=== PATIENT | female | born 1945 | race Caucasian/White ===

== ENCOUNTER 2017-04-19 13:47 | Observation (INO) | payer MEDICARE, SELFPAY ==
[2017-04-19 13:56] VITALS: PULSE 65; RESP 18; O2SAT 95
--- NOTE | 2017-04-19 14:46 | XR_ITS ---
XR chest 2V HISTORY: ITS.REASON: COUGH ORDERING PHYSICIAN: Cora Camara MD PATIENT AGE: 71 years COMPARISON: 09/24/2011 FINDINGS: The cardiomediastinal silhouette and pulmonary vascularity are within normal limits. The lungs are clear without infiltrates, suspicious nodules, or pleural effusions. Thoracic spondylosis with osteophytosis No acute bony abnormalities. IMPRESSION: No change with no acute finding
--- NOTE | 2017-04-19 15:25 | HMH.EDGENADL ---
ED Disposition Clinical Impression: Acute bronchitis, Hypokalemia, Claustrophobia Clinical Impression: (Ruled Out): Pneumonia Disposition: Still a Patient Condition on Discharge: Fair Additional Instructions: She continued and wheezing and she requested to be admitted because she lives by herself and her is admitted to [place]. Spoke Dr. Ching dedicated regional driver for Dr. Richards who accepted admission. Prescriptions: Albuterol Sulfate [Albuterol HFA Inhaler] 1 puff IH Q4HP PRN #1 inh PRN Reason: Shortness Of Breath Or Wheezing Benzonatate [Tessalon Perle 100mg Cap] 100 mg PO Q4HP PRN #30 cap PRN Reason: Cough cefUROXime axetil [Ceftin 250mg Tablet] 250 mg PO BID #20 tablet Referrals: Gaetano Ching MD [Staff Physician] - - Critical Care Critical Care Time: No Attestation: On 04/19/17, the high probability of a clinically significant, sudden or life threatening deterioration of the following system(s) required my full and direct attention, intervention and personal management. The time I documented below is in addition to time spent performing reported procedures but includes the following listed in this critical care notation. Medical Decision Making - Medical Records Medical records reviewed: Yes: I reviewed the patient's medical records. Vital Signs: 04/19/17 13:56 04/19/17 15:48 Temperature 98.4 F Temperature Source Temporal Artery Scan Temporal Artery Scan Pulse Rate [Right Brachial] 65 85 Respiratory Rate 18 18 02 Sat by Pulse Oximetry 95 Oxygen Delivery Method Room Air Nasal Cannula - Lab Data Lab Results 04/19/17 15:29: WBC 7.7, RBC 5.03, Hgb 14.2, Hct 43.1, MCV 85.7, MCH 28.2, MCHC 32.8, RDW 13.6, Plt Count 292, MPV 10.5 H, Neut % (Auto) 68.2, Lymph % (Auto) 22.9, [place] % (Auto) 7.9, Eos % (Auto) 0.7, Baso % (Auto) 0.3, Neut # (Auto) 5.2, Lymph # (Auto) 1.8, [place] # (Auto) 0.6, Eos # (Auto) 0.1, Baso # (Auto) 0.0 04/19/17 15:29: Sodium 139, Potassium 3.1 L, Chloride 100, Carbon Dioxide 29, Anion Gap 13.1, BUN 33 H, Creatinine 1.47 H, Estimated Creat Clear 43, Estimated GFR 35 L, Est GFR ( Amer) 42 L, Glucose 100, Calcium 9.0, Total Bilirubin 0.8, AST 19, ALT 23, Alkaline Phosphatase 86, Troponin I < 0.02, Total Protein 7.4, Albumin 3.9, Globulin 3.5 H, Albumin/Globulin Ratio 1.1 04/19/17 15:29: B-Natriuretic Peptide 23 Result diagrams: 04/19/17 15:29 04/19/17 15:29 Orders (Tests/Meds): ED MEDICATIONS Discontinued Medications Generic Name Dose Route Start Last Admin Trade Name Freq PRN Reason Stop Dose Admin Albuterol/Ipratropium 3 ml 04/19/17 17:17 Duoneb 3ml Neb IH 04/19/17 17:18 ONCE ONE Ceftriaxone Sodium 1 gm/ 50 mls @ 100 mls/hr 04/19/17 15:28 04/19/17 15:59 Sodium Chloride IV 04/19/17 15:57 100 mls/hr ONCE ONE Administration Methylprednisolone Sodium Succinate 125 mg 04/19/17 17:16 Solu-Medrol 125mg/2ml Vial IV 04/19/17 17:17 ONCE ONE Potassium Chloride 40 meq 04/19/17 17:18 Klor-Con 20meq Tablet PO 04/19/17 17:19 ONCE ONE ORDERS Category Date Time Status Upper Respiratory Panel, PCR Stat Lab 04/19/17 14:00 Received Blood Culture Stat Micro 04/19/17 15:29 Ordered Sputum Culture & Gram Stain Stat Micro 04/19/17 14:59 Ordered ABG [Arterial Blood Gas] Stat RT 04/19/17 14:57 Ordered ABG [Arterial Blood Gas] Stat RT 04/19/17 16:22 Ordered ECG Request by /Sophia Stat Y 04/19/17 14:57 Ordered - Radiology Data #2 Image(s): Chest Image Reviewed: Yes I reviewed the patient's radiology image The patient has chronic changes in her old chest x-ray I cannot exclude new left perihilar infiltrate. - ECG Data Tracing #1 EKG is normal sinus rhythm 61/min no acute findings - Mani Inquiry Pt receiving controlled substance: No Mani was queried for this patient: No Medical Decision Making Narrative: After lab works in the negative chest x-ray the patient con
--- NOTE | 2017-04-19 15:28 | ED_ITS ---
ED Disposition Clinical Impression: Acute bronchitis, Hypokalemia, Claustrophobia Clinical Impression: (Ruled Out): Pneumonia Disposition: Still a Patient Condition on Discharge: Fair Additional Instructions: She continued and wheezing and she requested to be admitted because she lives by herself and her is admitted to [place]. Spoke Dr. Ching extermination inspector for Dr. Richards who accepted admission. Prescriptions: Albuterol Sulfate [Albuterol HFA Inhaler] 1 puff IH Q4HP PRN #1 inh PRN Reason: Shortness Of Breath Or Wheezing Benzonatate [Tessalon Perle 100mg Cap] 100 mg PO Q4HP PRN #30 cap PRN Reason: Cough cefUROXime axetil [Ceftin 250mg Tablet] 250 mg PO BID #20 tablet Referrals: Gaetano Ching MD [Staff Physician] - - Critical Care Critical Care Time: No Attestation: On 04/19/17, the high probability of a clinically significant, sudden or life threatening deterioration of the following system(s) required my full and direct attention, intervention and personal management. The time I documented below is in addition to time spent performing reported procedures but includes the following listed in this critical care notation. Medical Decision Making - Medical Records Medical records reviewed: Yes: I reviewed the patient's medical records. Vital Signs: 04/19/17 13:56 04/19/17 15:48 Temperature 98.4 F Temperature Source Temporal Artery Scan Temporal Artery Scan Pulse Rate [Right Brachial] 65 85 Respiratory Rate 18 18 02 Sat by Pulse Oximetry 95 Oxygen Delivery Method Room Air Nasal Cannula - Lab Data Lab Results 04/19/17 15:29: WBC 7.7, RBC 5.03, Hgb 14.2, Hct 43.1, MCV 85.7, MCH 28.2, MCHC 32.8, RDW 13.6, Plt Count 292, MPV 10.5 H, Neut % (Auto) 68.2, Lymph % (Auto) 22.9, [place] % (Auto) 7.9, Eos % (Auto) 0.7, Baso % (Auto) 0.3, Neut # (Auto) 5.2 , Lymph # (Auto) 1.8, [place] # (Auto) 0.6, Eos # (Auto) 0.1, Baso # (Auto) 0.0 04/19/17 15:29: Sodium 139, Potassium 3.1 L, Chloride 100, Carbon Dioxide 29, Anion Gap 13.1, BUN 33 H, Creatinine 1.47 H, Estimated Creat Clear 43, Estimated GFR 35 L, Est GFR ( Amer) 42 L, Glucose 100, Calcium 9.0, Total Bilirubin 0.8, AST 19, ALT 23, Alkaline Phosphatase 86, Troponin I < 0.02 , Total Protein 7.4, Albumin 3.9, Globulin 3.5 H, Albumin/Globulin Ratio 1.1 04/19/17 15:29: B-Natriuretic Peptide 23 Result diagrams: 04/19/17 15:29 04/19/17 15:29 Orders (Tests/Meds): ED MEDICATIONS Discontinued Medications Generic Name Dose Route Start Last Admin Trade Name Freq PRN Reason Stop Dose Admin Albuterol/Ipratropium 3 ml 04/19/17 17:17 Duoneb 3ml Neb IH 04/19/17 17:18 ONCE ONE Ceftriaxone Sodium 1 gm/ 50 mls @ 100 mls/hr 04/19/17 15:28 04/19/17 15:59 Sodium Chloride IV 04/19/17 15:57 100 mls/hr ONCE ONE Administration Methylprednisolone Sodium Succinate 125 mg 04/19/17 17:16 Solu-Medrol 125mg/2ml Vial IV 04/19/17 17:17 ONCE ONE Potassium Chloride 40 meq 04/19/17 17:18 Klor-Con 20meq Tablet PO 04/19/17 17:19 ONCE ONE ORDERS Category Date Time Status Upper Respiratory Panel, PCR Stat Lab 04/19/17 14:00 Received Blood Culture Stat Micro 04/19/17 15:29 Ordered Sputum Culture & Gram Stain Stat Micro 04/19/17 14:59 Ordered ABG [Arterial Blood Gas] Stat RT 04/19/17 14:5
[2017-04-19 15:48] VITALS: PULSE 85; RESP 18; TEMP 36.9
[2017-04-19 16:02] LABS: Adenovirus,PCR Not Detected (NotDetected); Bordetella Pertussis Not Detected (NotDetected); Chlamydophila Pneumoniae, PCR Not Detected (NotDetected); Coronavirus 229E Not Detected (NotDetected); Coronavirus NL63 Not Detected (NotDetected); Coronavirus OC43 Not Detected (NotDetected); Coronovirus HKU1,PCR Not Detected (NotDetected); Human Metapneumovirus Not Detected (NotDetected); Influenza A, PCR Not Detected (NotDetected); Influenza AH1, 2009 Not Detected (NotDetected); Influenza AH1, PCR Not Detected (NotDetected); Influenza AH3,PCR Not Detected (NotDetected); Influenza B, PCR Not Detected (NotDetected); Mycoplasma Pneumoniae, PCR Not Detected (NotDected); Parainfluenza 1, PCR Not Detected (NotDetected); Parainfluenza 2, PCR Not Detected (NotDetected); Parainfluenza 3, PCR Not Detected (NotDetected); Parainfluenza 4, PCR Not Detected (NotDetected); Respiratory Syncytial Virus Not Detected (NotDetected); Rhinovirus/Enterovirus Not Detected (NotDetected)
[2017-04-19 16:30] LABS: Alanine Aminotransferase 23 U/L (12-78); Albumin Level 3.9 gm/dL (3.4-5.0); Albumin/Globulin Ratio 1.1 (1.1-1.8); Alkaline Phosphatase 86 U/L (46-116); Anion Gap 13.1 mEq/L (5-15); Aspartate Amino Transferase 19 U/L (15-37); Bilirubin,Total 0.8 mg/dL (0.2-1.0); Blood Urea Nitrogen 33 mg/dL (7-18); Carbon Dioxide 29 mmol/L (21.0-32.0); Chloride 100 mmol/L (98-107); Creatinine Clearance Estimated 43 mL/min (0-300); Creatinine,Serum 1.47 mg/dL (0.55-1.02); Estimated Glomerular Filt Rate 35 ml/min (>60); GFR (African American) 42 ML/MIN (>60); Globulin 3.5 gm/dl (1.3-3.2); Glucose 100 mg/dL (74-106); Potassium 3.1 mmoL/L (3.5-5.1); Sodium 139 mmol/L (136-145); Total Protein,Serum 7.4 gm/dL (6.4-8.2); Troponin I < 0.02 ng/ml (0.00-0.06)
[2017-04-19 17:09] LABS: Basophils % 0.3 % (0.1-2.0); Eosinophils # 0.1 K/mm3 (0.0-0.4); Eosinophils % 0.7 % (0.1-12.0); Hematocrit 43.1 % (37.0-47.0); Hemoglobin 14.2 g/dL (12.2-16.2); Lymphocytes # 1.8 K/mm3 (0.7-4.5); Lymphocytes % 22.9 K/mm3 (10-50); Mean Corpuscular HGB Conc 32.8 g/dL (31.8-35.4); Mean Corpuscular Hemoglobin 28.2 pg (27.0-31.2); Mean Corpuscular Volume 85.7 fl (81-99); Mean Platelet Volume 10.5 fl (7.4-10.4); Monocytes # 0.6 K/mm3 (0.1-1.0); Monocytes % 7.9 % (1.7-9.3); Neutrophils # 5.2 K/mm3 (1.8-7.8); Neutrophils % 68.2 % (37.0-80.0); Platelet Count 292 K/mm3 (142-424); Red Blood Count 5.03 M/mm3 (4.20-5.40); Red Cell Distribution Width 13.6 % (11.5-17.5); White Blood Count 7.7 K/mm3 (4.8-10.8)
[2017-04-19 17:10] VITALS: PULSE 80; O2SAT 98
[2017-04-19 17:15] LABS: ABG HCO3 23.4 mmhg (22.0-26.0); ABG Oxygen Saturation 98 % (90-100); ABG PCO2 23.7 mmhg (35.0-45.0); ABG PO2 86.3 mmhg (80-100); ABG TCO2 24.1 mmhg (23-27)
[2017-04-19 17:23] LABS: Allen's Test Non Applicable; Oxygen ROOM AIR %; Source Right Brachial
[2017-04-19 17:24] LABS: ABG PH 7.61 mmol/L (7.35-7.45)
[2017-04-19 17:39] VITALS: BMI 27.6
[2017-04-19 18:05] VITALS: BP 121/80; PULSE 65; RESP 16; TEMP 36.6; O2SAT 98
--- NOTE | 2017-04-19 18:07 | PC.NURSE ---
called report to adriel helms on . advised i needed someone to come get patient as we had no extra person to send up
[2017-04-19 19:28] VITALS: BP 121/80; PULSE 82; RESP 18; TEMP 37; O2SAT 98
[2017-04-19 20:00] VITALS: BP 153/56; PULSE 69; RESP 18; TEMP 36.6; O2SAT 99
[2017-04-20 00:12] LABS: Troponin I < 0.02 ng/ml (0.00-0.06)
[2017-04-20 04:00] VITALS: BP 127/52; PULSE 73; RESP 14; TEMP 36.6; O2SAT 99
--- NOTE | 2017-04-20 06:16 | PC.NURSE ---
PT HAS BEEN RESTLESS, HAS NOT SLEPT. PT WITH COUGH, REQUESTED COUGH MED. TESSALON PEARLE GIVEN. NO FURTHER COMPLAINTS OF COUGH AT THIS TIME. PT AMBULATING TO BATHROOM WITH STEADY GAIT.
[2017-04-20 07:29] LABS: Anion Gap 14.6 mEq/L (5-15); Blood Urea Nitrogen 29 mg/dL (7-18); Carbon Dioxide 27 mmol/L (21.0-32.0); Chloride 107 mmol/L (98-107); Creatinine Clearance Estimated 45 mL/min (0-300); Estimated Glomerular Filt Rate 40 ml/min (>60); GFR (African American) 49 ML/MIN (>60); Potassium 3.6 mmoL/L (3.5-5.1); Sodium 145 mmol/L (136-145); Troponin I < 0.02 ng/ml (0.00-0.06)
[2017-04-20 07:32] LABS: Basophils % 0.1 % (0.1-2.0); Eosinophils % 0.1 % (0.1-12.0); Hemoglobin 13.5 g/dL (12.2-16.2); Lymphocytes # 0.9 K/mm3 (0.7-4.5); Lymphocytes % 13.9 K/mm3 (10-50); Mean Corpuscular Hemoglobin 28.2 pg (27.0-31.2); Mean Corpuscular Volume 85.3 fl (81-99); Mean Platelet Volume 10.5 fl (7.4-10.4); Monocytes # 0.3 K/mm3 (0.1-1.0); Monocytes % 3.9 % (1.7-9.3); Neutrophils # 5.4 K/mm3 (1.8-7.8); Neutrophils % 82.1 % (37.0-80.0); Platelet Count 286 K/mm3 (142-424); Red Blood Count 4.81 M/mm3 (4.20-5.40); Red Cell Distribution Width 13.5 % (11.5-17.5); White Blood Count 6.6 K/mm3 (4.8-10.8)
[2017-04-20 07:36] LABS: Glucose 131 mg/dL (74-106)
--- NOTE | 2017-04-20 11:48 | P.CONPHA_ITS ---
[facility] Pharmacy VTE Monitoring - Patient Demographics Admission date: 04/20/17 Report Date: 04/20/17 Time: 11:48 Allergies/Adverse Reactions: Patient Allergies No Known Allergies Allergy (Verified 04/19/17 14:02) Height: 1.63 m Weight: 73.057 kg Patient Problems: Current Active Problems Acute bronchitis (Acute) Hypokalemia (Acute) Claustrophobia (Acute) - VTE Risk Labs: VTE Related Lab Results Hgb 13.5 g/dL (12.2-16.2) 04/20/17 06:25 Hct 41.0 % (37.0-47.0) 04/20/17 06:25 Plt Count 286 K/mm3 (142-424) 04/20/17 06:25 BUN 29 mg/dL (7-18) H 04/20/17 06:25 Creatinine 1.30 mg/dL (0.55-1.02) H 04/20/17 06:25 Estimated Creat Clear 45 mL/min (0-300) 04/20/17 06:25 Was VTE Risk Assessment Performed: No VTE Score: 2 VTE Risk Level: Very Low Risk - Prophylaxis Types of VTE Prophylaxis: TEDS Knee High Location of Applied Device: Right Leg, Left Leg - VTE Diagnosis Confirmed Comment: MIL
--- NOTE | 2017-04-20 12:05 | XR_ITS ---
XR chest 2V HISTORY: Cough and congestion ITS.REASON: r/o pneumonia ORDERING PHYSICIAN: Emerson Richards MD PATIENT AGE: 71 years COMPARISON: 04/19/2017 FINDINGS: The cardiomediastinal silhouette and pulmonary vascularity are within normal limits. Atelectatic changes are present in the left lung base and there is some increased density overlying the uterus back to the heart on the lateral view which could be due to an area of infiltrate in the lingula or right middle lobe. The remaining lungs are clear. IMPRESSION: Left basilar atelectasis with patchy infiltrate within either the lingula or right middle lobe
--- NOTE | 2017-04-20 12:06 | HMH.HP ---
*Admission Date: 04/19/17 *Chief complaint: cough and weakness *History of present illness: Ms. Aj is a 71-year-old white female with a history of hypertension, hyperlipidemia, carotid artery stenosis, and osteoarthritis who presented to the emergency room yesterday with a one-week history of generally not feeling well. She started with chest congestion and cough about a week ago. Cough is sometimes productive. She has had some generalized weakness past few days and appetite has been diminished. She had a fall 5 days ago and thinks that she actually passed out for about 20 minutes. No complaints of chest pain or palpitations. She was alone at home at the time. Her is currently in [facility] from a [id number] amputation. She was worked up in the emergency room. She was in mild respiratory distress. Chest x-ray showed acute bronchitis. Her potassium was low. Because she lives at home it was felt she should be admitted for further evaluation and treatment. At the time of my exam this morning, she still has a cough that is mostly nonproductive and she states she is weak and feels like she might pass out when she gets up to the . [facility] History I have reviewed the patient's past medical history: Yes Medical History: Reports:: Carotid Stenosis, Hyperlipidemia, Hypertension Denies:: Cancer, Diabetes Mellitus Type 1, Diabetes Mellitus Type 2, MRSA Other Medical History: Reports: Arthritis, Cataracts Laterality Cases: Left: Carotid Endarterectomy, Right: Cataract Other Surgeries: Yes: Tubal Ligation Amputation: No Fractures: No - *Social History Educational Level: Completed Grade School Smoking Status: Former smoker Tobacco Type: cigarettes Smoking End Date: 1979 Alcohol Intake: never Occupational Status: retired Housing: house Household Members: children - Psychiatric History Expresses thoughts of harming self/others: None Suicide Plan Description: No Plan *Family Hx:: Cancer (father - liver; siblings - brain), Stroke (mother) Review of Systems - Constitutional Reports fatigue, Reports malaise - Eyes Reports blurry vision - ENT Reports hearing loss, Reports nasal congestion, Denies sinus pain, Denies sore throat - *Cardiovascular Reports shortness of breath with activity, Denies chest pain, Denies generalized swelling, Denies irregular heart rhythm - *Respiratory Reports change in phlegm color, Reports chest congestion, Reports cough, Reports shortness of breath with activity, Denies coughing up blood, Denies pain with cough - *Gastrointestinal Denies abdominal pain, Denies change in stools, Denies incontinent of stools, Denies bright, red blood in stools - *Genitourinary Denies abnormal vaginal bleeding - *Musculoskeletal Reports joint pain - Integumentary/Breasts Denies itching, Denies rash Comments: abrasion of elbow - *Neurologic Reports unsteadiness, Reports dizziness, Denies memory loss Comments: syncopal episode - Psychiatric Reports depression, Denies confusion - Endocrine Denies cold intolerance, Denies heat intolerance - Allergic/Immunologic Denies itchy eyes Meds Home Medications Medication Instructions Recorded Confirmed Type Amlodipine Besylate [Amlodipine 10 mg PO DAILY 04/19/17 04/19/17 History 10mg Tab] Clopidogrel Bisulfate [Plavix 75mg 75 mg PO DAILY 04/19/17 04/19/17 History Tab] Furosemide [Furosemide 20mg Tab] 40 mg PO DAILY 04/19/17 04/19/17 History Metoprolol Tartrate [Lopressor 100 mg PO BID 04/19/17 04/19/17 History 25mg tablet] Pravastatin Sodium [Pravachol 20mg 40 mg PO DAILY 04/19/17 04/19/17 History Tablet] cloNIDine HCl [cloNIDine 0.1mg 1 tab PO DAILYP PRN 04/19/17 04/19/17 History Tablet] Valsartan [Valsartan] 160 mg PO BID 04/20/17 04/20/17 History Allergies Allergy/AdvReac Type Severity Reaction Status Date / Time No Known Allergies Allergy Verified 04/19/17 14:02 Exam Vital signs and Labs fo
[2017-04-20 15:37] VITALS: BP 143/75; PULSE 60; RESP 18; TEMP 37.1; O2SAT 98
[2017-04-20 16:00] VITALS: PULSE 62
--- NOTE | 2017-04-20 18:38 | PC.NURSE ---
PATIENT RESTING IN BED, NO CHANGES IN CONDITION TODAY.
[2017-04-20 20:00] VITALS: BP 138/70; PULSE 70; RESP 18; TEMP 36.8; O2SAT 99
[2017-04-21] VITALS (10 sets, daily range): BP systolic 126–153; BP diastolic 55–76; PULSE 57–80; RESP 18–20; TEMP 36.4–36.8; O2SAT 95–99
--- NOTE | 2017-04-21 05:12 | PC.NURSE ---
PT HAS BEEN AWAKE TONIGHT. REQUIRES STANDBY ASSIST OF 1 TO BATHROOM. NO COMPLAINTS OF COUGH THIS SHIFT. DID RECEIVE PO TYLENOL FOR HEADACHE. NSR ON TELEMTRY.
[2017-04-21 06:52] LABS: Basophils % 0.2 % (0.1-2.0); Eosinophils % 0.1 % (0.1-12.0); Hematocrit 38.8 % (37.0-47.0); Hemoglobin 12.6 g/dL (12.2-16.2); Lymphocytes # 1.1 K/mm3 (0.7-4.5); Lymphocytes % 9.4 K/mm3 (10-50); Mean Corpuscular HGB Conc 32.5 g/dL (31.8-35.4); Mean Corpuscular Hemoglobin 28.5 pg (27.0-31.2); Mean Corpuscular Volume 87.7 fl (81-99); Mean Platelet Volume 10.6 fl (7.4-10.4); Monocytes # 0.4 K/mm3 (0.1-1.0); Monocytes % 3.3 % (1.7-9.3); Platelet Count 269 K/mm3 (142-424); Red Blood Count 4.43 M/mm3 (4.20-5.40); Red Cell Distribution Width 13.8 % (11.5-17.5); White Blood Count 11.5 K/mm3 (4.8-10.8)
[2017-04-21 06:53] LABS: Anion Gap 13.5 mEq/L (5-15); Blood Urea Nitrogen 29 mg/dL (7-18); Carbon Dioxide 27 mmol/L (21.0-32.0); Chloride 106 mmol/L (98-107); Creatinine Clearance Estimated 46 mL/min (0-300); Creatinine,Serum 1.28 mg/dL (0.55-1.02); Estimated Glomerular Filt Rate 41 ml/min (>60); GFR (African American) 50 ML/MIN (>60); Glucose 180 mg/dL (74-106); Potassium 4.5 mmoL/L (3.5-5.1); Sodium 142 mmol/L (136-145)
--- NOTE | 2017-04-21 06:53 | CI_ITS ---
Cerebrovascular Exam Indications: 780.2 Syncope and collapse. 433.10 Occlusion/stenosis of carotid artery without cerebral infarction. IMPRESSIONS 1. The bilateral vertebral arteries are patent with normal antegrade flow. 2. Study suggests 50-69% stenosis involving the right internal carotid artery. 3. Study suggests less than 20% stenosis involving the left internal carotid artery. No change from the study of 13-Sep-2015. Labs, prior tests, procedures, and surgery: Left endarterectomy. Labs, prior tests, procedures, and surgery: Left endarterectomy. Carotid duplex study. Complete study and Doppler flow study including spectral analysis, color and romano scale imaging. Height: Height: 162.6cm. Height: 64in. Weight: Weight: 73kg. Weight: 160.7lb. Body mass index: BMI: 27.6kg/m^2. Body surface area: BSA: 1.83m^2. Location: Bedside. Patient status: Inpatient. Tables: Arterial flow: + +--------+--------+ Location V sys V ed + +--------+--------+ Right CCA - proximal 52.6cm/s 11.8cm/s + +--------+--------+ Right CCA - distal 51.9cm/s 18.9cm/s + +--------+--------+ Right ECA 110cm/s -------- + +--------+--------+ Right ICA - proximal 112cm/s 37.7cm/s + +--------+--------+ Right ICA - mid 118cm/s 27.5cm/s + +--------+--------+ Right ICA - distal 138cm/s 30.4cm/s + +--------+--------+ Right vertebral 56cm/s -------- + +--------+--------+ Left CCA - proximal 77.6cm/s 18.7cm/s + +--------+--------+ Left CCA - distal 92.3cm/s 26.5cm/s + +--------+--------+ Left ECA 167cm/s -------- + +--------+--------+ Left ICA - proximal 89.4cm/s 25.5cm/s + +--------+--------+ Left ICA - mid 89.4cm/s 22.6cm/s + +--------+--------+ Left ICA - distal 88.4cm/s 24.6cm/s + +--------+--------+ Left vertebral 50.1cm/s -------- + +--------+--------+ Velocity ratios: + + + + + + Right, V sys Right, V ed Left, V sys Left, V ed + + + + + + Max ICA/dist CCA 2.66 1.99 0.97 0.96 + + + + + + (Report amended ) Electronically signed by: Andrew Colón [id number]
[2017-04-21 06:55] LABS: MANUAL DIFFERENTIAL MANUAL DIFFERENTIAL (MANUAL DIFF)
[2017-04-21 07:50] LABS: Lymphocytes % 7 % (10-50); Neutrophils % 93 % (42-76); Platelet Estimate Normal; RBC Morphology Normal; Total Cells Counted 100
--- NOTE | 2017-04-21 09:45 | HMH.ACPN2 ---
<Caty Tipton - Last Filed: 04/21/17 13:48> Internal Medicine - PN: Subj *Date: 04/21/17 *Time: 13:48 Interval history: feels a little better this AM ; never sleeps at night; no appetite; some cough ; denies CP and SOB; has walked to the bathroom with help Exam Vital signs and Labs for Last 24 Hours: Temp Pulse Resp BP Pulse Ox 98.3 F 74 20 141/63 99 04/21/17 08:00 04/21/17 08:00 04/21/17 08:00 04/21/17 08:00 04/21/17 08:00 Laboratory Results - last 24 hr 04/21/17 06:12: WBC 11.5 H D, RBC 4.43, Hgb 12.6, Hct 38.8, MCV 87.7, MCH 28.5, MCHC 32.5, RDW 13.8, Plt Count 269, MPV 10.6 H, Neut % (Auto) 87.0 H, Lymph % (Auto) 9.4 L, [place] % (Auto) 3.3, Eos % (Auto) 0.1, Baso % (Auto) 0.2, Neut # (Auto) 10.0 H, Lymph # (Auto) 1.1, [place] # (Auto) 0.4, Eos # (Auto) 0.0, Baso # (Auto) 0.0, Total Counted 100, Neutrophils % (Manual) 93 H, Lymphocytes % (Manual) 7 L, Platelet Estimate Normal, RBC Morphology Normal 04/21/17 06:12: Sodium 142, Potassium 4.5 D, Chloride 106, Carbon Dioxide 27, Anion Gap 13.5, BUN 29 H, Creatinine 1.28 H, Estimated Creat Clear 46, Estimated GFR 41 L, Est GFR ( Amer) 50 L, Glucose 180 H D I & O for Last 24 hours: Intake & Output 04/18/17 04/19/17 04/20/17 04/21/17 11:59 11:59 11:59 11:59 Intake Total 764 / 764 3950 / 3950 Output Total 1200 / 1200 Balance 764 / 764 2750 / 2750 Weight 161 lb 1 oz Radiology Reports for the Last 24 Hours: 04/20/17 CXR IMPRESSION: Left basilar atelectasis with patchy infiltrate within either the lingula or right middle lobe - Constitutional no acute distress Comments: sitting on bedside bathing - *Routine Respiratory Exam Absent: accessory muscle use, respiratory distress Comments: bilateral basilar crackles - *Routine Cardiovascular Exam Present: RRR - *Routine Abdominal Exam Present: soft, normoactive bowel sounds. Absent: tenderness, distended - *Routine Extremities Exam Present: full ROM. Absent: edema, calf tenderness Comments: has MIL hose on - *Routine Neurological Exam Present: alert, oriented X3 Assessment and Plan (1) Acute bronchitis Current visit: Yes Status: Acute Category: Medical Code(s): J20.9 - Acute bronchitis, unspecified (2) Syncope and collapse Current visit: Yes Status: Acute Category: Medical Code(s): R55 - Syncope and collapse (3) HBP (high blood pressure) Current visit: Yes Status: Acute Category: Medical Code(s): I10 - Essential (primary) hypertension (4) Hyperlipidemia Current visit: Yes Status: Acute Category: Medical Code(s): E78.5 - Hyperlipidemia, unspecified (5) Generalized osteoarthritis Current visit: Yes Status: Acute Category: Medical Code(s): M15.9 - Polyosteoarthritis, unspecified (6) Carotid artery disease Current visit: Yes Status: Acute Category: Medical Code(s): I77.9 - Disorder of arteries and arterioles, unspecified (7) Hypokalemia Current visit: Yes Status: Acute Category: Medical Code(s): E87.6 - Hypokalemia (8) Chronic renal insufficiency, stage III (moderate) Current visit: Yes Status: Chronic Category: Medical Code(s): N18.3 - Chronic kidney disease, stage 3 (moderate) (9) Pneumonia Current visit: Yes Status: Acute Qualifiers: Laterality: right Category: Medical Code(s): J18.9 - Pneumonia, unspecified organism - Assessment and plan all Dx Assessment and Plan for all problems:: continue with Ceftin a d Zithromax and Duonebs <Emerson Richards - Last Filed: 04/21/17 18:07> Internal Medicine - PN: Subj *Date: 04/21/17 *Time: 18:04 Exam Vital signs and Labs for Last 24 Hours: Temp Pulse Resp BP Pulse Ox 98.3 F 70 20 127/55 97 04/21/17 15:18 04/21/17 15:18 04/21/17 15:18 04/21/17 15:18 04/21/17 15:18 Laboratory Results - last 24 hr 04/21/17 06:12: WBC 11.5 H D, RBC 4.43, Hgb 12.6, Hct 38.8, MCV 87.7, MCH 28.5, MCHC
--- NOTE | 2017-04-21 09:48 | P.PN_ITS ---
<Caty Tipton - Last Filed: 04/21/17 13:48> Internal Medicine - PN: Subj *Date: 04/21/17 *Time: 13:48 Interval history: feels a little better this AM ; never sleeps at night; no appetite; some cough ; denies CP and SOB; has walked to the bathroom with help Exam Vital signs and Labs for Last 24 Hours: Temp Pulse Resp BP Pulse Ox 98.3 F 74 20 141/63 99 04/21/17 08:00 04/21/17 08:00 04/21/17 08:00 04/21/17 08:00 04/21/17 08:00 Laboratory Results - last 24 hr 04/21/17 06:12: WBC 11.5 H D, RBC 4.43, Hgb 12.6, Hct 38.8, MCV 87.7, MCH 28.5, MCHC 32.5, RDW 13.8, Plt Count 269, MPV 10.6 H, Neut % (Auto) 87.0 H, Lymph % ( Auto) 9.4 L, [place] % (Auto) 3.3, Eos % (Auto) 0.1, Baso % (Auto) 0.2, Neut # ( Auto) 10.0 H, Lymph # (Auto) 1.1, [place] # (Auto) 0.4, Eos # (Auto) 0.0, Baso # ( Auto) 0.0, Total Counted 100, Neutrophils % (Manual) 93 H, Lymphocytes % (Manual ) 7 L, Platelet Estimate Normal, RBC Morphology Normal 04/21/17 06:12: Sodium 142, Potassium 4.5 D, Chloride 106, Carbon Dioxide 27, Anion Gap 13.5, BUN 29 H, Creatinine 1.28 H, Estimated Creat Clear 46, Estimated GFR 41 L, Est GFR ( Amer) 50 L, Glucose 180 H D I & O for Last 24 hours: Intake & Output 04/18/17 04/19/17 04/20/17 04/21/17 11:59 11:59 11:59 11:59 Intake Total 764 / 764 3950 / 3950 Output Total 1200 / 1200 Balance 764 / 764 2750 / 2750 Weight 161 lb 1 oz Radiology Reports for the Last 24 Hours: 04/20/17 CXR IMPRESSION: Left basilar atelectasis with patchy infiltrate within either the lingula or right middle lobe - Constitutional no acute distress Comments: sitting on bedside bathing - *Routine Respiratory Exam Absent: accessory muscle use, respiratory distress Comments: bilateral basilar crackles - *Routine Cardiovascular Exam Present: RRR - *Routine Abdominal Exam Present: soft, normoactive bowel sounds. Absent: tenderness, distended - *Routine Extremities Exam Present: full ROM. Absent: edema, calf tenderness Comments: has MIL hose on - *Routine Neurological Exam Present: alert, oriented X3 Assessment and Plan (1) Acute bronchitis Current visit: Yes Status: Acute Category: Medical Code(s): J20.9 - Acute bronchitis, unspecified (2) Syncope and collapse Current visit: Yes Status: Acute Category: Medical Code(s): R55 - Syncope and collapse (3) HBP (high blood pressure) Current visit: Yes Status: Acute Category: Medical Code(s): I10 - Essential (primary) hypertension (4) Hyperlipidemia Current visit: Yes Status: Acute Category: Medical Code(s): E78.5 - Hyperlipidemia, unspecified (5) Generalized osteoarthritis Current visit: Yes Status: Acute Category: Medical Code(s): M15.9 - Polyosteoarthritis, unspecified (6) Carotid artery disease Current visit: Yes Status: Acute Category: Medical Code(s): I77.9 - Disorder of arteries and arterioles, unspecified (7) Hypokalemia Current visit: Yes Status: Acute Category: Medical Code(s): E87.6 - Hypokalemia (8) Chronic renal insufficiency, stage III (moderate) Current visit: Yes Status: Chronic Category: Medical Code(s): N18.3 - Chronic kidney disease, stage 3 (moderate) (9) Pneumonia Current visit: Yes Status: Acute Qualifiers: Laterality: right Category: Medical Code(s): J18.9 - Pneumonia, unspecified organism
[2017-04-22] VITALS: BP 151/69; PULSE 55; RESP 18; TEMP 36.7; O2SAT 95
[2017-04-22 04:00] VITALS: BP 140/53; PULSE 50; PULSE 61; RESP 18; TEMP 36.5; O2SAT 98
--- NOTE | 2017-04-22 04:45 | PC.NURSE ---
PATE[place] LAYING IN BED RESTING AT THIS TIME. HAS SLEPT MOST OF NIGHT. DENIES ANY SOA OR PAIN. LUNGS ARE CLEAR, RESP EVEN AND NONLABORED. IV IS PATENT. HAS BEEN NSR ON TELE. DENIES ANY NEEDS AT THIS TIME. BED LOCKED IN LOW POSITION, SIDE RALES UP X 2. CALL LIGHT WITHIN REACH. WILLL CONTINUE TO MONITOR.
[2017-04-22 05:47] VITALS: PULSE 74; PULSE 78
[2017-04-22 08:00] VITALS: PULSE 70
--- NOTE | 2017-04-22 08:39 | HMH.DCSUM ---
General - General Admission date: 04/19/17 <Emerson Richards - 04/22/17 08:42> Discharge date: 04/22/17 <Laura Johnson - 04/22/17 14:18> HPI HPI: Ms. Aj is a 71-year-old white female with a history of hypertension, hyperlipidemia, carotid artery stenosis, and osteoarthritis who presented to the emergency room yesterday with a one-week history of generally not feeling well. She started with chest congestion and cough about a week ago. Cough is sometimes productive. She has had some generalized weakness past few days and appetite has been diminished. She had a fall 5 days ago and thinks that she actually passed out for about 20 minutes. No complaints of chest pain or palpitations. She was alone at home at the time. Her is currently in the senior care rehabbing from a [id number] amputation. She was worked up in the emergency room. She was in mild respiratory distress. Chest x-ray showed acute bronchitis. Her potassium was low. Because she lives at home it was felt she should be admitted for further evaluation and treatment. At the time of my exam this morning, she still has a cough that is mostly nonproductive and she states she is weak and feels like she might pass out when she gets up to the BR. <SusieEmerson leal - 04/22/17 08:42> Objective Vital signs: Temp Pulse Resp BP Pulse Ox 98.1 F 59 L 20 112/61 96 04/22/17 12:01 04/22/17 12:01 04/22/17 12:01 04/22/17 12:01 04/22/17 12:01 <Laura Johnson - 04/22/17 14:18> Temp Pulse Resp BP Pulse Ox 97.7 F 78 18 140/53 98 04/22/17 04:00 04/22/17 05:47 04/22/17 04:00 04/22/17 04:00 04/22/17 04:00 <Emerson Richards - 04/22/17 08:42> Narrative: - Constitutional no acute distress, cooperative Comments: dry cough - *Routine HEENT Exam Head: Present: normocephalic, atraumatic Eye: Present: PERRL. Absent: scleral injection ENT: Present: mucous membranes moist, oropharynx clear - *Routine Neck Exam Present: supple, carotid bruit. Absent: lymphadenopathy, thyromegaly - *Routine Respiratory Exam Comments: coarse BS with bilateral wheezes - *Routine Cardiovascular Exam Present: RRR - *Routine Abdominal Exam Present: soft, normoactive bowel sounds. Absent: tenderness, distended - *Routine Extremities Exam Absent: cyanosis, clubbing, edema <IzaiahLaura low - 04/22/17 14:18> Hospital Course Hospital Course: She was admitted for further evaluation and treatment. In terms of her bronchitis, she was given a dose of Rocephin and Zithromax in the ER and this was continued. She was also continued on IV steroids as well as DuoNeb aerosols. With her history of syncope and past history of carotid stenosis, a carotid artery duplex was ordered and she was placed on a solar sales representative. She did have some renal insufficiency which was likely chronic but may have had some degree of prerenal azotemia as well. She was started on IV fluids with potassium replacement. A repeat CXR after hydration showed a left basilar atelectasis with patchy infiltrate within either the lingula or the right middle lobe. She was continued on antibiotics, steroids and aerosols. Carotid duplex showed no critical stenoses. She improved and was stable to be discharged home on abx and nebs. She will f/u in the office of A. <Laura Johnson - 04/22/17 14:18> DS: Diagnosis - Discharge Diagnosis (1) Pneumonia Status: Acute (2) Syncope and collapse Status: Acute (3) HBP (high blood pressure) Status: Acute (4) Hyperlipidemia Status: Acute (5) Generalized osteoarthritis Status: Acute (6) Carotid artery disease Status: Acute (7) Hypokalemia Status: Acute (8) Chronic renal insufficiency, stage III (moderate) Status: Chronic <Emerson Richards - 04/22/17 08:39> Meds Home Medications Medication Instructions Recorded Confirmed Type Amlodipine Besylate [Amlodipine 10 mg PO D
--- NOTE | 2017-04-22 08:42 | P.DS_ITS ---
General - General Admission date: 04/19/17 <Emerson Richards - 04/22/17 08:42> Discharge date: 04/22/17 <Laura Johnson - 04/22/17 14:18> HPI HPI: Ms. Aj is a 71-year-old white female with a history of hypertension, hyperlipidemia, carotid artery stenosis, and osteoarthritis who presented to the emergency room yesterday with a one-week history of generally not feeling well. She started with chest congestion and cough about a week ago. Cough is sometimes productive. She has had some generalized weakness past few days and appetite has been diminished. She had a fall 5 days ago and thinks that she actually passed out for about 20 minutes. No complaints of chest pain or palpitations. She was alone at home at the time. Her is currently in the [facility] rehabbing from a [id number] amputation. She was worked up in the emergency room. She was in mild respiratory distress. Chest x-ray showed acute bronchitis. Her potassium was low. Because she lives at home it was felt she should be admitted for further evaluation and treatment. At the time of my exam this morning, she still has a cough that is mostly nonproductive and she states she is weak and feels like she might pass out when she gets up to the BR. <SusieEmerson leal - 04/22/17 08:42> Objective Vital signs: Temp Pulse Resp BP Pulse Ox 98.1 F 59 L 20 112/61 96 04/22/17 12:01 04/22/17 12:01 04/22/17 12:01 04/22/17 12:01 04/22/17 12:01 <Laura Johnson - 04/22/17 14:18> Temp Pulse Resp BP Pulse Ox 97.7 F 78 18 140/53 98 04/22/17 04:00 04/22/17 05:47 04/22/17 04:00 04/22/17 04:00 04/22/17 04:00 <Emerson Richards - 04/22/17 08:42> Narrative: - Constitutional no acute distress, cooperative Comments: dry cough - *Routine HEENT Exam Head: Present: normocephalic, atraumatic Eye: Present: PERRL. Absent: scleral injection ENT: Present: mucous membranes moist, oropharynx clear - *Routine Neck Exam Present: supple, carotid bruit. Absent: lymphadenopathy, thyromegaly - *Routine Respiratory Exam Comments: coarse BS with bilateral wheezes - *Routine Cardiovascular Exam Present: RRR - *Routine Abdominal Exam Present: soft, normoactive bowel sounds. Absent: tenderness, distended - *Routine Extremities Exam Absent: cyanosis, clubbing, edema <Laura Johnson - 04/22/17 14:18> Hospital Course Hospital Course: She was admitted for further evaluation and treatment. In terms of her bronchitis, she was given a dose of Rocephin and Zithromax in the ER and this was continued. She was also continued on IV steroids as well as DuoNeb aerosols. With her history of syncope and past history of carotid stenosis, a carotid artery duplex was ordered and she was placed on a raise miner. She did have some renal insufficiency which was likely chronic but may have had some degree of prerenal azotemia as well. She was started on IV fluids with potassium replacement. A repeat CXR after hydration showed a left basilar atelectasis with patchy infiltrate within either the lingula or the right middle lobe. She was continued on antibiotics, steroids and aerosols. Carotid duplex showed no critical stenoses. She improved and was stable to be discharged home on abx and nebs. She will f/u in the office of A. <Laura Johnson - 04/22/17 14:18> DS: Diagnosis - Discharge Diagnosis (1) Pneumonia Status: Acute (2) Syncope and collapse Status: Acute (3) HB
[2017-04-22 08:46] VITALS: BP 144/55; PULSE 77; RESP 18; TEMP 36.6; O2SAT 96
--- NOTE | 2017-04-22 09:44 | SW/DCPLANNER ---
Made rounds with Dr Richards he is going to discharge her to home today...She asked if I could assist her with making a call to her brother to come and get her! I did assist her and she will be leaving today after lunch...
[2017-04-22 12:01] VITALS: BP 112/61; PULSE 59; RESP 20; TEMP 36.7; O2SAT 96
== END 2017-04-22 13:15 | disposition home or self-care (01) ==
LOC: ER 17:24 → 2ND 20:12
PROVIDERS: Admitting Provider Family Medicine; Emergency Provider Emergency Medicine; Family Provider Family Medicine; Visit Provider Family Medicine
DX: J18.9 Pneumonia, unspecified organism (principal); J20.9 Acute bronchitis, unspecified; E87.6 Hypokalemia; F40.240 Claustrophobia; E78.5 Hyperlipidemia, unspecified; S50.311A Abrasion of right elbow, initial encounter; W19.XXXA Unspecified fall, initial encounter; Y93.9 Activity, unspecified; M15.9 Polyosteoarthritis, unspecified; R55 Syncope and collapse; I12.9 Hypertensive chronic kidney disease with stage 1 through stage 4 chronic kidney disease, or unspecified chronic kidney disease; N18.3 Chronic kidney disease, stage 3 (moderate); I77.9 Disorder of arteries and arterioles, unspecified; Z87.891 Personal history of nicotine dependence; Z80.0 Family history of malignant neoplasm of digestive organs; Z80.8 Family history of malignant neoplasm of other organs or systems; Z82.3 Family history of stroke; Z79.02 Long term (current) use of antithrombotics/antiplatelets; Z79.899 Other long term (current) drug therapy
CPT/HCPCS: 36415; 71046; 80048; 80053; 82803; 83880; 84484; 85007; 85025; 87040; 87070; 87205; 87486; 87581; 87633; 87798; 93005; 93041; 93880; 94640; 96365; 96376; 99284; G0378

== ENCOUNTER 2017-06-03 09:11 | Day surgery (SDC) | payer MEDICARE, SELFPAY ==
[2017-06-03] VITALS (8 sets, daily range): BP systolic 115–142; BP diastolic 54–83; PULSE 59–76; RESP 18; TEMP 36.5–36.6; O2SAT 95–98; BMI 28.3
== END 2017-06-03 11:19 | disposition home or self-care (01) ==
LOC: OR 09:13
PROVIDERS: Family Provider Family Medicine; PCP Family Medicine; Visit Provider Ophthalmology
DX: H26.9 Unspecified cataract (principal)
CPT/HCPCS: 66982; V2632

== ENCOUNTER → 2018-02-25 08:56 | Outpatient (CLI) | payer MEDICARE, SELFPAY ==
--- NOTE | 2018-02-25 08:59 | MM_ITS ---
MM Dig screening mamm BI w/CAD ORDERING PHYSICIAN : Emerson Richards MD PATIENT AGE: 72 years GENDER: Female COMPARISON: Apparently Baseline mammogram THERE are no prior films available.Staff double checked INDICATION: ITS.REASON: SCREENING . No hormones no new complaints. Family history. Maternal aunt with breast cancer age 60 TECHNIQUE: Standard CC and MLO images were obtained. R2 CAD reviewed. FINDINGS: Breast are of moderate density bilaterally y. RIGHT BREAST:Right breast. Follow-up in one year No areas of significant concern. Benign Secretory calcifications noted LEFT BREAST :12 mm discrete rounded ovoid density upper-outer quadrant left breast. Requires further evaluation with ultrasound. To further evaluate. CC and MLO views spot views, along with a full 90 degrees diagnostic views right breast mammogram views suggested when patient returns as well IMPRESSION: 1. Left breast: 12 mm will delineated ovoid density upper-outer quadrant left breast. Requires further evaluation with ultrasound and spot views 2. Right breast.: Unremarkable. Follow-up in one year BI-RADS Category: 0 Need Additional Imaging Evaluation RECOMMENDED FOLLOW-UP: IMM - IMMEDIATE FOLLOW-UP RECOMMENDED (A letter has been sent to the patient regarding results of the study.)
== END ==
PROVIDERS: PCP Family Medicine; Visit Provider Family Medicine
DX: Z12.31 Encounter for screening mammogram for malignant neoplasm of breast (principal)
CPT/HCPCS: 77067

== ENCOUNTER → 2018-03-27 08:59 | Outpatient (CLI) | payer MEDICARE, SELFPAY ==
--- NOTE | 2018-03-27 09:02 | US_ITS ---
MM Dig mamm DX unilat LT CAD, US breast LT complete INDICATION: Follow-up abnormal mammogram, left breast nodule ORDERING PHYSICIAN: Emerson Richards MD PATIENT AGE: 72 years COMPARISON: 02/25/2018 TECHNIQUE: Problem-solving views of the left breast along with left breast ultrasound FINDINGS: Spot compression views once again confirmed a well-circumscribed 13 x 12 mm nodule in the upper outer aspect of the left breast at the 1:00 region. Benign-appearing calcifications are noted on the left as well. Left breast ultrasound: There is a hypoechoic nodule at 1:00 have been a lobular appearance measuring 14 x 10 mm para lateral to the chest wall. The nodule is fairly well-circumscribed but does show decreased through transmission of sound. The nodule is barely superficial. Biopsy is recommended. This does not represent a simple cyst IMPRESSION: Solid nodule in the upper outer left breast as described above mildly suspicious. Biopsy recommended. Suggest ultrasound-guided core biopsy. BI-RADS Category: 4 Suspicious Abnormality-Biopsy Considered RECOMMENDED FOLLOW-UP: BIO - BIOPSY RECOMMENDED (A letter has been sent to the patient regarding results of the study.)
== END ==
PROVIDERS: PCP Family Medicine; Visit Provider Family Medicine
DX: R92.8 Other abnormal and inconclusive findings on diagnostic imaging of breast (principal)
CPT/HCPCS: 76641; 77065

== ENCOUNTER → 2018-04-17 09:12 | Outpatient (CLI) | payer MEDICARE, SELFPAY ==
--- NOTE | 2018-04-17 09:17 | US_ITS ---
US organ site (breast), US biopsy (core), US breast LT complete, FNA w guidance CLINICAL INDICATION: ITS.REASON: ABNORMAL MAMM ORDERING PHYSICIAN: Emerson Mayberry Prebiopsy ultrasound: Prebiopsy ultrasound performed for planning and once again demonstrates a well-circumscribed hypoechoic subcutaneous nodule near the nipple at 1:00. There was some increase echogenicity now noted on today's exam in the central aspect of this area possibly due to an intramammary lymph node. Appropriate site was marked on the patient for biopsy. TECHNIQUE: Following obtaining informed consent, timeout was performed. There are under aseptic conditions and local anesthesia with 1% buffered lidocaine fine-needle aspiration was performed with a 25-gauge needle. Following this, skin neck was performed and 16-gauge core biopsy performed x3 under sonographic guidance. The patient tolerated the procedure well without evidence of immediate complication. Cytology: Nondiagnostic specimen Pathology: Benign fibrous stroma with scant associated benign ducts and lobules IMPRESSION: Ultrasound guided biopsy of the left breast shows benign findings. Recommend 6 month mammographic and sonographic follow-up to confirm stability
== END ==
PROVIDERS: PCP Family Medicine; Visit Provider Family Medicine
DX: N63.20 Unspecified lump in the left breast, unspecified quadrant (principal); R92.8 Other abnormal and inconclusive findings on diagnostic imaging of breast
CPT/HCPCS: 10005; 76641; 76942; 88305

== ENCOUNTER 2021-04-06 08:54 | Inpatient (IN) | payer MEDICARE, SELFPAY ==
[2021-04-06] VITALS (10 sets, daily range): BP systolic 125–146; BP diastolic 44–101; PULSE 80–195; RESP 20–30; TEMP 36.7–37.1; O2SAT 92–100; BMI 28.3; BMI 29.7
--- NOTE | 2021-04-06 08:59 | XR_ITS ---
FINAL REPORT CLINICAL HISTORY: soa COMPARISON: April 20, 2017 FINDINGS: SINGLE VIEW CHEST. There is cardiomegaly. The mediastinum is unremarkable. There are new bibasilar pulmonary opacities which are worrisome for pneumonia. There is a small left pleural effusion. There is no pneumothorax. IMPRESSION: Bibasilar pulmonary opacities, worrisome for pneumonia. Reviewed, Interpreted and Dictated by Praveen Howell III, MD Transcribed by Quyen Feliz Authenticated by Praveen Howell III, MD on 04/06/2021 10:01:57 AM [facility]
--- NOTE | 2021-04-06 08:59 | HMH.EDGENADL ---
ED Disposition Clinical Impression: VIOLA (acute kidney injury), Atrial fibrillation with rapid ventricular response, New onset atrial fibrillation, Noncompliance with medication regimen Sepsis Qualifiers: Sepsis type: sepsis due to unspecified organism Sepsis acute organ dysfunction status: with acute organ dysfunction Severe sepsis acute organ dysfunction type: acute renal failure Acute renal failure type: unspecified Severe sepsis shock status: without septic shock Qualified Code(s): A41.9 - Sepsis, unspecified organism Pneumonia Qualifiers: Pneumonia type: due to unspecified organism Laterality: bilateral Lung location: lower lobe of lung Qualified Code(s): J18.9 - Pneumonia, unspecified organism CKD (chronic kidney disease) Qualifiers: Chronic kidney disease stage: unspecified stage Qualified Code(s): N18.9 - Chronic kidney disease, unspecified Disposition: Admitted As Inpatient Condition on Discharge: Serious Referrals: Emerson Richards MD [Primary Care Provider] - - Critical Care Critical Care Time: Yes Attestation: On , the high probability of a clinically significant, sudden or life threatening deterioration of the following system(s) required my full and direct attention, intervention and personal management. The time I documented below is in addition to time spent performing reported procedures but includes the following listed in this critical care notation. Total Critical Care Time: 30 Vital system(s) involved:: Circulatory Failure, Renal Failure My critical care processes included: Assessment & monitoring of V/S, Initial and Re-exams, Data Review/Interpretation, Coordinating Care, Medication Orders and management, Documentation Medical Decision Making - Mani Inquiry Pt receiving controlled substance: No Vital Signs: 04/06/21 08:54 04/06/21 09:30 04/06/21 09:48 Temperature 98.8 F Temperature Source Oral Pulse Rate 187 H 195 H Pulse Rate [Right] 188 H Respiratory Rate 20 Blood Pressure 142/101 H 140/44 L Blood Pressure [Right Arm] 127/98 H Blood Pressure Mean Blood Pressure Mean [Right Arm] 107 Blood Pressure Source Automatic Cuff Automatic Cuff Blood Pressure Source [Right Arm] Automatic Cuff Blood Pressure Position Sitting Sitting Blood Pressure Position [Right Arm] Sitting 02 Sat by Pulse Oximetry 98 100 Oxygen Delivery Method Room Air Nasal Cannula Oxygen Flow Rate (LPM) 2 04/06/21 09:50 04/06/21 10:11 04/06/21 10:30 Temperature Temperature Source Pulse Rate 118 H 99 H 144 H Pulse Rate [Right] Respiratory Rate 30 H 22 Blood Pressure 141/99 H 133/72 146/84 H Blood Pressure [Right Arm] Blood Pressure Mean Blood Pressure Mean [Right Arm] Blood Pressure Source Automatic Cuff Blood Pressure Source [Right Arm] Blood Pressure Position Sitting Blood Pressure Position [Right Arm] 02 Sat by Pulse Oximetry 99 92 L 99 Oxygen Delivery Method Nasal Cannula Nasal Cannula Nasal Cannula Oxygen Flow Rate (LPM) 2 2 2 04/06/21 11:01 Temperature Temperature Source Pulse Rate 129 H Pulse Rate [Right] Respiratory Rate 24 Blood Pressure 140/64 Blood Pressure [Right Arm] Blood Pressure Mean 89 Blood Pressure Mean [Right Arm] Blood Pressure Source Blood Pressure Source [Right Arm] Blood Pressure Position Blood Pressure Position [Right Arm] 02 Sat by Pulse Oximetry 100 Oxygen Delivery Method Nasal Cannula Oxygen Flow Rate (LPM) 2 - Lab Data Lab Results 04/06/21 09:03: SARS-CoV-2 (PCR) Not detected, Influenza A Untype (PCR) Not detected, Influenza Type B (PCR) Not detected 04/06/21 09:30: WBC 20.6 H*, RBC 5.14, Hgb 13.6, Hct 44.1, MCV 85.8, MCH 26.5 L, MCHC 30.9 L, RDW 16.9, Plt Count 488 H, MPV 9.3, Neut % (Auto) 87.8 H, Lymph % (Auto) 6.3 L, Rich % (Auto) 4.9, Eos % (Auto) 0.4, Baso % (Auto) 0.7, Neut # (Auto) 18.0 H, Lymph # (Auto) 1.3, Rich # (Auto) 1.0, Eos # (Auto) 0.1, Baso # (Auto) 0.1, Total Counted 100, Neutrophil
--- NOTE | 2021-04-06 09:00 | ECG_ITS ---
APPROVED REPORT Exam: Resting ECG HR:180 bpm ECG Measurements Heart Rate 180 AXES QRSd 82 QRS 38 QT 254 T 36 QTc 439 Conclusion Atrial fibrillation with rapid ventricular response Abnormal ECG Electronically signed by : Misael Feldman MD 04/06/2021 17:32:48
--- NOTE | 2021-04-06 09:09 | CA_ITS ---
APPROVED REPORT EXAM: Comprehensive 2D, Doppler, and color-flow Echocardiogram Procurement Consultant: Jocelyn Garcia CRT Ht: 5 ft 3 in Wt: 160lbs BSA: 1.76 BP: 129/69 mmHg Indications: Atrial Fibrillation, Hyperlipidemia, Hypertension/HDD, ex smoker 2D Dimensions LVOT 1.63 cm (M/F) 1.5-2.5 LA Volume 65.70 mL LA Volume Index 37.30 mL/m2 (M/F) 16-34 M-Mode Dimensions RVDd 2.51 cm (0.9-2.6) LA Diam 4.54 cm (1.9-4.0) LVDd 4.78 cm (3.5-5.7) Ao Diam 3.26 cm (2.0-3.7) LVDs 4.22 cm (3.5-5.7) IVSd 1.34 cm (0.6-1.1) PWd 0.69 cm (0.6-1.1) EF (Teich) 25.40% FS 11.70% EDV (Teich) 106.50 mL TAPSE 1.37 (<1.7) ESV (Teich) 79.50 mL Aortic Valve AO Peak GR. 8.60 mmHg Pulmonary Valve PV Peak Velocity 111.00 (50-150 cm/s) Tricuspid Valve TR P. Velocity 313.00 cm/s RAP Estimate 10.00 mmHg RVSP 49.20 mmHg Left Ventricle Left atrium is moderately enlarged, left ventricular is mildly dilated, severely reduced left ventricular systolic function, visually estimated ejection fraction 20 to 25% left ventricle is globally hypokinetic, there is abnormal septal motion. Diastolic parameters are inconclusive. Right Ventricle Right atrium and right ventricle are mildly dilated, contractility of the right ventricle is moderately reduced. Aortic Valve Aortic valve is minimally thickened and fibrosed, there is no aortic stenosis or aortic insufficiency. Mitral Valve Mitral valve leaflets are minimally thickened, there is no mitral stenosis, there is moderate mitral regurgitation. Tricuspid Valve Tricuspid valve is grossly normal, there is moderate tricuspid regurgitation, calculated right ventricular systolic pressure is 49 mmHg. Pulmonic Valve Pulmonic valve is poorly visualized. Great Vessels Aortic root is normal size. Inferior vena cava is mildly dilated without significant inspiratory collapse. Pericardium No significant pericardial effusion noted There is left-sided pleural effusion seen. Conclusion 1. Biatrial and biventricular enlargement, severely reduced left ventricular systolic function, visually estimated ejection fraction 20 to 25% left ventricle is globally hypokinetic. Diastolic parameters are inconclusive. 2. Enlarged right ventricle with moderately reduced contractility. 3. Moderate mitral and tricuspid regurgitation, calculated ventricular systolic pressure is 49 mmHg. 4. No significant pericardial effusion noted, there is a left-sided pleural effusion seen. 5. Inferior vena cava is mildly dilated without significant inspiratory collapse. Electronically signed by : Nikhil Powell MD 04/06/2021 15:32:43
[2021-04-06 09:29] LABS: Coronavirus 19, PCR Not Detected (NotDetected); Influenza A, PCR Not Detected (NotDetected); Influenza B, PCR Not Detected (NotDetected)
[2021-04-06 09:52] LABS: Basophils # 0.1 K/mm3 (0-0.2); Basophils % 0.7 % (0.1-2.0); Eosinophils # 0.1 K/mm3 (0.0-0.4); Eosinophils % 0.4 % (0.1-12.0); Hematocrit 44.1 % (37.0-47.0); Hemoglobin 13.6 g/dL (12.2-16.2); Lymphocytes # 1.3 K/mm3 (0.7-4.5); Lymphocytes % 6.3 % (10-50); Mean Corpuscular HGB Conc 30.9 g/dL (31.8-35.4); Mean Corpuscular Hemoglobin 26.5 pg (27.0-31.2); Mean Corpuscular Volume 85.8 fl (81-99); Mean Platelet Volume 9.3 fl (7.4-10.4); Monocytes % 4.9 % (1.7-9.3); Neutrophils % 87.8 % (37.0-80.0); Platelet Count 488 K/mm3 (142-424); Red Blood Count 5.14 M/mm3 (4.20-5.40); Red Cell Distribution Width 16.9 % (11.5-17.5); White Blood Count 20.6 K/mm3 (4.8-10.8)
[2021-04-06 09:55] LABS: MANUAL DIFFERENTIAL MANUAL DIFFERENTIAL (MANUAL DIFF)
[2021-04-06 10:00] LABS: Alanine Aminotransferase 94 U/L (12-78); Albumin Level 3.8 g/dl (3.5-5.0); Albumin/Globulin Ratio 1.2 (1.1-1.8); Alkaline Phosphatase 131 U/L (38-126); Anion Gap 21.3 mEq/L (5-15); Aspartate Amino Transferase 107 U/L (14-36); Bilirubin,Total 1.6 mg/dl (0.2-1.3); Blood Urea Nitrogen 70 mg/dl (7-17); Calcium 9.1 mg/dl (8.4-10.2); Carbon Dioxide 19 mmol/L (22.0-30.0); Chloride 98 mmol/L (98-107); Creatinine Clearance Estimated 18 mL/min (50-200); Estimated Glomerular Filt Rate 15 ml/min (>60); GFR (African American) 18 ML/MIN (>60); Globulin 3.2 g/dL (1.3-3.2); Glucose 118 mg/dl (74-100); Potassium 5.3 mmoL/L (3.5-5.1); Sodium 133 mmol/L (136-145)
[2021-04-06 10:01] LABS: Magnesium 2.5 mg/dl (1.6-2.3)
--- NOTE | 2021-04-06 10:07 | PC.NURSE ---
Called lab and asked them to come and collect BC and lactic acid.
[2021-04-06 10:11] LABS: Anisocytosis 1+; Hypochromasia 2+; Lymphocytes % 7 % (10-50); Monocytes % 5 % (2-9); Neutrophils % 87 % (42-76); Nucleated Red Blood Cells 2; Platelet Estimate Slight Increase; Total Cells Counted 100
[2021-04-06 10:13] LABS: Troponin I 0.06 ng/ml (0.00-0.034)
--- NOTE | 2021-04-06 10:21 | PC.NURSE ---
Drip increased to 15mg. Notified
[2021-04-06 10:23] LABS: Free Thyroxine Index 3.2 ug/dL (5.93-13.13); T4 (Thyroxine) 7.8 ug/dl (5.53-11.0); Triiodothryronine (T3) Uptake 41 % (23.5-40.5)
--- NOTE | 2021-04-06 10:29 | PC.NURSE ---
lab at bedside for cultures and lactic
--- NOTE | 2021-04-06 10:30 | PC.NURSE ---
calling dr miller at this time.
[2021-04-06 10:37] LABS: Thyroid Stimulating Hormone 3.72 uIU/mL (0.465-4.68)
--- NOTE | 2021-04-06 10:44 | PC.NURSE ---
1037 bed assignment requested, room [id number]. waiting for room to be cleaned. all staff notified
--- NOTE | 2021-04-06 10:45 | PC.NURSE ---
meat supervisor called. Patient is going to go [facility] room 217.
--- NOTE | 2021-04-06 10:53 | PC.NURSE ---
lab at attempting to obtain blood cultures and lactic acid, pt is a difficult stick ER is aware
--- NOTE | 2021-04-06 10:55 | PC.NURSE ---
Call Lay and asked for her to come down and place another IV so we could obtain BC/lactic and start fluids.
[2021-04-06 10:59] LABS: NT Pro Brain Natriuretic Pep. 24100 pg/mL (0-450)
--- NOTE | 2021-04-06 11:06 | PC.NURSE ---
Lay at bedside
[2021-04-06 11:22] LABS: Lactic Acid 2.8 mmol/L (0.7-2.1)
--- NOTE | 2021-04-06 11:37 | PC.NURSE ---
Called report to Kalyani on the floor.
--- NOTE | 2021-04-06 11:39 | PC.NURSE ---
v/s delayed due to attempting IV access
--- NOTE | 2021-04-06 12:03 | PC.NURSE ---
Lay able to place a 18g in the right upper arm.
--- NOTE | 2021-04-06 12:43 | PC.NURSE ---
HR maintaining 135-147. Cardizem gtt increased to 20mL/hr @ this time
--- NOTE | 2021-04-06 12:46 | P.HP_ITS ---
*Admission Date: 04/06/21 <Laura Johnson 04/06/21 12:55> *History of present illness: Brought in by ambulance. History obtained from patient and son. Patient says she has not felt well for 4 days. Complains of no appetite for food, but has been able to drink liquids and states she has been drinking a lot of fluid. Complains of general weakness. Son says she is not able to get up on her own and walk. Shortness of breath. Productive cough. No known fever. Denies vomiting or diarrhea. Denies urinary symptoms. Denies chest pain or palpitations or tachycardia. She admits that she has not been taking her medications for several months. She gets medications via mail prescribed 3 months at a time by Dr. Richards. She has never been a smoker. Nondrinker. No known exposure to COVID-19. States no family members have COVID-19. She is not vaccinated against COVID-19. (above as per ER physician) She was evaluated in the ER and found to have bilateral pneumonia and atrial fibrillation with rapid ventricular response and a rate of 180. She was started on IV antibiotics and a Cardizem drip as well as IV fluids. She was admitted and cardiology was consulted. <Laura Johnson 04/06/21 17:10> [facility] History I have reviewed the patient's past medical history: Yes <Laura Johnson 04/06/21 17:10> Medical History: Reports:: Carotid Stenosis, Deep Vein Thrombosis, Hyperlipidemia, Hypertension Denies:: Cancer, Diabetes Mellitus Type 1, Diabetes Mellitus Type 2, Lung Disease, MRSA, Seizures <Laura Johnson 04/06/21 12:55> *Have you ever received a pneumonia vaccine?: No <Laura Johnson 04/06/21 12:55> *Have you received a flu vaccine this season?: No <Laura Johnson 04/06/21 12:55> Other Medical History: Reports: Arthritis, Cataracts <Laura Johnson 04/06/21 12:55> Laterality Cases: Left: Carotid Endarterectomy <Laura Johnson 04/06/21 12:55> Other Surgeries: Yes: Tubal Ligation, Other (left CEA) <Laura Johnson 04/06/21 12:55> Amputation: No <IzaiahmarandaLaura 04/06/21 12:55> Fractures: No <IzaiahmarandaLaura - 04/06/21 12:55> - *Social History Smoking Status: Former smoker <IzaiahMario lowa 04/06/21 12:55> Tobacco Type: cigarettes <IzaiahmarandaLaura 04/06/21 12:55> Alcohol Intake: never <ElizabethLaura 04/06/21 12:55> *Occupational Status:: retired <IzaiahMario lowa 04/06/21 12:55> Housing: house <IzaiahmarandaLaura 04/06/21 12:55> Household Members: children <IzaiahMario lowa 04/06/21 12:55> *Travel in the last 8 weeks: None <ElizabethLaura - 04/06/21 17:10> Family Hx:: Cancer (father - liver; siblings - brain), Stroke (mother) <ElizabethLaura 04/06/21 12:55> Review of Systems - Constitutional Reports fatigue, Reports lack of energy, Reports malaise, Reports weakness, D enies chills, Denies fever(s) <ElizabethLaura 04/06/21 17:10> - Eyes Denies blurry vision, Denies double vision <ElizabethLaura - 04/06/21 17:10> - ENT Reports nasal congestion, Reports sore throat <ElizabethLaura - 04/06/21 17:10> - *Cardiovascular Reports shortness of breath, Denies chest pain <ElizabethLaura - 04/06/21 17:10> - *Respiratory Reports chest congestion, Reports cough, Reports shortness of breath <ElizabethLaura 04/06/21 17:10> - *Gastrointestinal Denies abdominal pain, Denies loose stools, Denies nausea, Denies vomiting <ElizabethLaura 04/06/21 17:10> - *Genitourinary Denies difficulty urinating, Denies painful urination <ElizabethLaura 04/06 17:10> - *Musculoskeletal Denies joint pain <ElizabethLaura 04/06/21 17:10> - *Neurologic Reports headache(s), Reports dizziness, Reports weakne
--- NOTE | 2021-04-06 12:46 | HMH.HP ---
*Admission Date: 04/06/21 <Laura Johnson 04/06/21 12:55> *History of present illness: Brought in by ambulance. History obtained from patient and son. Patient says she has not felt well for 4 days. Complains of no appetite for food, but has been able to drink liquids and states she has been drinking a lot of fluid. Complains of general weakness. Son says she is not able to get up on her own and walk. Shortness of breath. Productive cough. No known fever. Denies vomiting or diarrhea. Denies urinary symptoms. Denies chest pain or palpitations or tachycardia. She admits that she has not been taking her medications for several months. She gets medications via mail prescribed 3 months at a time by Dr. Richards. She has never been a smoker. Nondrinker. No known exposure to COVID-19. States no family members have COVID-19. She is not vaccinated against COVID-19. (above as per ER physician) She was evaluated in the ER and found to have bilateral pneumonia and atrial fibrillation with rapid ventricular response and a rate of 180. She was started on IV antibiotics and a Cardizem drip as well as IV fluids. She was admitted and cardiology was consulted. <Laura Johnson 04/06/21 17:10> [facility] History I have reviewed the patient's past medical history: Yes <Laura Johnson 04/06/21 17:10> Medical History: Reports:: Carotid Stenosis, Deep Vein Thrombosis, Hyperlipidemia, Hypertension Denies:: Cancer, Diabetes Mellitus Type 1, Diabetes Mellitus Type 2, Lung Disease, MRSA, Seizures <Laura Johnson 04/06/21 12:55> *Have you ever received a pneumonia vaccine?: No <Laura Johnson 04/06/21 12:55> *Have you received a flu vaccine this season?: No <Laura Johnson 04/06/21 12:55> Other Medical History: Reports: Arthritis, Cataracts <Laura Johnson 04/06/21 12:55> Laterality Cases: Left: Carotid Endarterectomy <Laura Johnson 04/06/21 12:55> Other Surgeries: Yes: Tubal Ligation, Other (left CEA) <Larua Johnson 04/06/21 12:55> Amputation: No <Laura Johnson 04/06/21 12:55> Fractures: No <Mario Johnson04/06/21 12:55> - *Social History Smoking Status: Former smoker <Laura Johnson 04/06/21 12:55> Tobacco Type: cigarettes <Laura Johnson 04/06/21 12:55> Alcohol Intake: never <Laura Johnson 04/06/21 12:55> *Occupational Status:: retired <Laura Johnson 04/06/21 12:55> Housing: house <Laura Johnson 04/06/21 12:55> Household Members: children <Laura Johnson 04/06/21 12:55> *Travel in the last 8 weeks: None <Mario Johnson04/06/21 17:10> Family Hx:: Cancer (father - liver; siblings - brain), Stroke (mother) <Laura Johnson 04/06/21 12:55> Review of Systems - Constitutional Reports fatigue, Reports lack of energy, Reports malaise, Reports weakness, Denies chills, Denies fever(s) <Mario Johnson04/06/21 17:10> - Eyes Denies blurry vision, Denies double vision <ElizabethLaura - 04/06/21 17:10> - ENT Reports nasal congestion, Reports sore throat <Mario Johnson04/06/21 17:10> - *Cardiovascular Reports shortness of breath, Denies chest pain <Mario Johnson04/06/21 17:10> - *Respiratory Reports chest congestion, Reports cough, Reports shortness of breath <Mario Johnson04/06/21 17:10> - *Gastrointestinal Denies abdominal pain, Denies loose stools, Denies nausea, Denies vomiting <Mario Johnson04/06/21 17:10> - *Genitourinary Denies difficulty urinating, Denies painful urination <Laura Johnson 04/06/21 17:10> - *Musculoskeletal Denies joint pain <Laura Johnson 04/06/21 17:10> - *Neurologic Reports headache(s), Reports dizziness, Reports weakness <Laura Johnson - 04/06/21 17:10> Meds Home Medications Medication Instructions Recorded Confirmed Type Amlodipine Besylate [Amlodipine 10 mg PO DAILY 04/19/17 04/06/21 History 10mg Tab] Clopidogrel Bisulfate [Plavix 75mg 75 mg PO DAILY 04/19/17 04/06/21 History Tab] Furosemide [Furosemide 20mg Tab*] 4
--- NOTE | 2021-04-06 13:17 | P.CONPHA_ITS ---
[facility] Pharmacy VTE Monitoring - Patient Demographics Admission date: 04/06/21 Report Date: 04/06/21 Time: 13:18 Allergies/Adverse Reactions: Patient Allergies No Known Allergies Allergy (Verified 04/19/17 14:02) Height: 1.6 m Weight: 72.575 kg Patient Problems: Current Active Problems HBP (high blood pressure) (Chronic) Hyperlipidemia (Chronic) Generalized osteoarthritis (Chronic) Carotid artery disease (Chronic) Chronic renal insufficiency, stage III (moderate) (Chronic) Pneumonia (Acute) Sepsis (Acute) VIOLA (acute kidney injury) (Acute) CKD (chronic kidney disease) (Chronic) Atrial fibrillation with rapid ventricular response (Acute) New onset atrial fibrillation (Acute) Noncompliance with medication regimen (Chronic) Elevated troponin (Acute) Elevated brain natriuretic peptide (BNP) level (Acute) - VTE Risk Labs: VTE Related Lab Results Hgb 13.6 g/dL (12.2-16.2) 04/06/21 09:30 Hct 44.1 % (37.0-47.0) 04/06/21 09:30 Plt Count 488 K/mm3 (142-424) H 04/06/21 09:30 BUN 70 mg/dl (7-17) H 04/06/21 09:30 Creatinine 3.10 mg/dl (0.52-1.04) H 04/06/21 09:30 Estimated Creat Clear 18 mL/min (50-200) 04/06/21 09:30 Was VTE Risk Assessment Performed: Yes VTE Risk Level: Moderate Risk Clinical Trial Participant: No - Prophylaxis VTE Prophylaxis Ordered?: Yes Types of VTE Prophylaxis: TEDS Knee High
--- NOTE | 2021-04-06 13:39 | HMH.CNCARD ---
History of Present Illness Consult date: 04/06/21 Requesting physician: Emerson Richards Consult reason: shortness of breath Chief complaint: A. fib with RVR, bilateral pneumonia Additional Medical History:: 1. HTN, treated for many years but stopped meds in early 2020 2. Acute renal insufficiency, 03/2021 3. Hyperlipidemia 4. History of DVT 5. History of carotid artery stenosis History of present illness: Brought in by ambulance. History obtained from patient and son. Patient says she has not felt well for 4 days. Complains of no appetite for food, but has been able to drink liquids and states she has been drinking a lot of fluid. Complains of general weakness. Son says she is not able to get up on her own and walk. Shortness of breath. Productive cough. No known fever. Denies vomiting or diarrhea. Denies urinary symptoms. Denies chest pain or palpitations or tachycardia. She admits that she has not been taking her medications for several months. She gets medications via mail prescribed 3 months at a time by Dr. Richards. She has never been a smoker. Nondrinker. No known exposure to COVID-19. States no family members have COVID-19. She is not vaccinated against COVID-19. She was evaluated in the ER and found to have bilateral pneumonia and atrial fibrillation with rapid ventricular response and a rate of 180. She was started on IV antibiotics and a Cardizem drip as well as IV fluids. She was admitted and cardiology was consulted. The above per DR. Goss and Laura Johnsno PA-C for Dr. Richards. Patient confirms events as noted above. Stopped taking medications at least 6 months ago and states that since her 3 years ago she has given up on taking care of herself. Patient in bed with supplemental oxygen by nasal cannula with telemetry showing atrial fibrillation with variable rate between 120 and 140 bpm. She is on diltiazem IV 20 mg/h at this time. She denies any prior cardiac history or history of congestive heart failure. She denies diabetes or tobacco use. Chest x-ray shows bilateral pneumonia BNP elevated at over 24,000 Echocardiogram has been ordered but is pending at this time. [facility] History Medical History: Reports:: Carotid Stenosis, Deep Vein Thrombosis, Hyperlipidemia, Hypertension Denies:: Cancer, Diabetes Mellitus Type 1, Diabetes Mellitus Type 2, Lung Disease, MRSA, Seizures *Have you ever received a pneumonia vaccine?: No *Have you received a flu vaccine this season?: No Other Medical History: Reports: Arthritis, Cataracts Laterality Cases: Left: Carotid Endarterectomy Other Surgeries: Yes: Tubal Ligation, Other (left CEA) Amputation: No Fractures: No - *Social History Smoking Status: Former smoker Tobacco Type: cigarettes Alcohol Intake: never *Occupational Status:: retired Housing: house Household Members: children *Travel in the last 8 weeks: None Family Hx:: Cancer (father - liver; siblings - brain), Stroke (mother) Meds Home Medications Medication Instructions Recorded Confirmed Type Amlodipine Besylate [Amlodipine 10 mg PO DAILY 04/19/17 04/06/21 History 10mg Tab] Clopidogrel Bisulfate [Plavix 75mg 75 mg PO DAILY 04/19/17 04/06/21 History Tab] Furosemide [Furosemide 20mg Tab*] 40 mg PO DAILY 04/19/17 04/06/21 History Pravastatin Sodium [Pravachol 20mg 40 mg PO HS 04/19/17 04/06/21 History Tablet] cloNIDine HCL [cloNIDine 0.1mg 1 tab PO HS 04/19/17 04/06/21 History Tablet] Doxepin HCl [Sinequan 25mg capsule] 25 mg PO HS 04/06/21 04/06/21 History Losartan Potassium [Cozaar 100mg 100 mg PO DAILY 04/06/21 04/06/21 History Tablets] Metoprolol Tartrate [Lopressor 100 100 mg PO BID 04/06/21 04/06/21 History mg Tablets] Multivitamin 1 tab PO DAILY 04/06/21 04/06/21 History Sertraline HCl [Zoloft 50mg tablet] 50 mg PO DAILY 04/06/21 04/06/21 History Allergies Allergy/AdvReac Type Severity Reaction Status Date / Time No Known All
--- NOTE | 2021-04-06 13:41 | HMH.PHAINT ---
home medication list verified using list from A office
[2021-04-06 15:12] LABS: Reflex Lactic Add Lactic Reflex
--- NOTE | 2021-04-06 16:46 | PC.NURSE ---
Cardizem gtt turned off at this time, HR between 95-110.
[2021-04-06 17:01] LABS: Lactic Acid Follow Up (RFLX 1) 1.2 mmol/L (0.7-2.1)
[2021-04-06 17:13] LABS: Troponin I 0.06 ng/ml (0.00-0.034)
[2021-04-06 17:28] LABS: Activated Partial Thrombo Time 26.1 seconds (22.8-30.6); INR 1.43 (0.9-1.1); Prothrombin Time 15.7 seconds (10.1-12.5)
--- NOTE | 2021-04-06 19:59 | PC.NURSE ---
Spoke to costumer Socrates Cheek- he will be up to assess patient shortly.
--- NOTE | 2021-04-06 20:11 | PC.NURSE ---
MD Ching notified of pt's expiration
--- NOTE | 2021-04-06 20:12 | P.PN_ITS ---
Critical Care Event Note Code activated: Yes Narrative: This case had a high probability of a clinically significant, sudden, or life threatening deterioration of this patient's condition which required my full and direct attention, intervention and personal management. GERMÁN SOLITARIO called on the patient. Nursing staff reports that patient had been taken off of Cardizem drip about 4:30 PM due to severe cardiomyopathy found on echocardiogram. She was started on metoprolol. They report heart rate was controlled and blood pressure was good but then she suddenly became bradycardic and pulseless. Nurses report that CPR was started and 2 doses of epinephrine have been given prior to my arrival. She is being ventilated with bag mask ventilations. Inspection of her airway shows that her oropharynx is completely full of blood. Pharynx was suctioned out. Unable to use glide scope because of massive amount of hemoptysis. The patient was intubated using a straight blade with a 7.5 endotracheal tube. Tube immediately filled with blood once in the trachea. This was suction as well. She continued to have large amounts of blood filling her endotracheal tube and required repeated suctioning. 250 cc of blood was suctioned out of the endotracheal tube and out of the oropharynx. She initially was in pulseless electrical activity upon my arrival, CPR and continued doses of epinephrine were administered. IV fluids were administered and universal donor blood was ordered. Intraosseous access was obtained by staff in the right tibia. The patient briefly regained spontaneous circulation with pulses, but blood pressure of 40. She only maintained spontaneous circulation for few minutes and then again it deteriorated to pulseless electrical activity. CPR resumed and further doses of epinephrine administered. Despite all of these measures after 30 minutes she remained in PEA and unresponsive to resuscitative measures. I spoke with the patient's 2 sons. I advised him that further tests stated efforts were not likely to be beneficial and I recommended withdrawing care at this time. They are both in agreement. They state that the patient had basically given up for years ago when her and stopped taking all of her medications months ago because she had given up. She was pronounced at 9:30 PM. Pupils were fixed and dilated. She was apneic. She was pulseless. No heart tones. Endotracheal Intubation Performed by: ALY ADLER Authorized by: ALY ADLER Consent: The procedure was performed in an emergent situation. Patient identity confirmed: arm band Indications: cardiac arrest Intubation method: direct Laryngoscope size: Roman 4 blade Tube size: 7.5 mm Tube type: cuffed Number of attempts: 1 Cords visualized: yes Post-procedure assessment: chest rise and CO2 detector Breath sounds: equal and absent over the epigastrium Cuff inflated: yes ETT to teeth: 20 cm Tube secured with: ETT haider Critical care time: 30 - 74 mins [facility] Critical Care Exam Vital signs: Temp Pulse Resp BP Pulse Ox 98.1 F 80 21 125/56 L 100 04/06/21 12:23 04/06/21 16:00 04/06/21 16:00 04/06/21 16:00 04/06/21 16:00
--- NOTE | 2021-04-06 20:17 | HMH.DEATH ---
Pronouncement Note - Date and Time of Date of : 04/06/21 Time of : 19:30 - Additional Data Attending physician: Emerson Richards MD
--- NOTE | 2021-04-06 20:22 | PC.NURSE ---
SHELLY notified at 04/06/21 @ 2011 [employer]: Catherine Sellers Ruled out for donation. Case # [id number]
--- NOTE | 2021-04-06 20:29 | PC.NURSE ---
Socrates Cheek speaking to son @ this time
--- NOTE | 2021-04-06 20:50 | PC.NURSE ---
During report, pt became bradycardic in the s. This RN went into room, pt had no pulse and was cyanotic. 1899- code blue called, CPR initiated 1900- pulse check PEA on monitor, compressions continued 1902- epi in 1903- rhythm check, asystole on monitor 1905- epi in 1906- rhythm check, no pulse, asystole 1908- epi in 1909- rhythm check, PEA 1910- BiCarb in, calcium chloride in 1911- epi in 1911- pulse check, pulse detected 1912- MD Goss ordered EKG, ABG, CBC 1913- BP 44/12 1914- CPR restarted 1915- epi in. ordered (1) emergent unit of blood 1917- No pulse 1918- epi in 1919- pulse check, no pulse 1921- epi in 1923- pulse check, no pulse 1923-bicarb in 1924- calcium in 1925- blood started 1925- epi in, no pulse 1927- no pulse 1928- epi in 1929- pulse check, no pulse. TOD pronounced by MD Goss
--- NOTE | 2021-04-07 00:46 | PC.NURSE ---
Pt's body left the floor at 2048 on 04/06/21. Unable to change discharge date/time.
--- NOTE | 2021-04-07 07:49 | PC.NURSE ---
Late entry: Post-mortem care not completed d/t pt being a coroners case. Once T Adia, Beam Builder Helper cleared pt- IV's, IO, and ETT all removed by this RN. Pt's body released to [facility] who was already present at the time.
--- NOTE | 2021-04-07 17:10 | HMH.DCSUM ---
General - General Admission date:: 04/06/21 <Emerson Richards - 05/06/21 15:06> 04/06/21 <Laura Johnson - 04/07/21 17:19> Discharge date: 04/06/21 <ElizabethLaura - 04/07/21 17:19> HPI HPI: Brought in by ambulance. History obtained from patient and son. Patient says she has not felt well for 4 days. Complains of no appetite for food, but has been able to drink liquids and states she has been drinking a lot of fluid. Complains of general weakness. Son says she is not able to get up on her own and walk. Shortness of breath. Productive cough. No known fever. Denies vomiting or diarrhea. Denies urinary symptoms. Denies chest pain or palpitations or tachycardia. She admits that she has not been taking her medications for several months. She gets medications via mail prescribed 3 months at a time by Dr. Richards. She has never been a smoker. Nondrinker. No known exposure to COVID-19. States no family members have COVID-19. She is not vaccinated against COVID-19. (above as per ER physician) She was evaluated in the ER and found to have bilateral pneumonia and atrial fibrillation with rapid ventricular response and a rate of 180. She was started on IV antibiotics and a Cardizem drip as well as IV fluids. She was admitted and cardiology was consulted. <ElizabethLaura - 04/07/21 17:19> Hospital Course Hospital Course: The patient had not been seen in the office of [facility] for the past 2 years and had not taken any medication for at least a year. She admitted she had not taken care of herself since her 3 years ago. She had been so weak at home she could not stand or walk and become dependent to the point where her family could not take care of her. She was admitted and started on pneumonia protocol. She was also started on a Cardizem drip due to new onset of rapid atrial fibrillation with rapid ventricular response. Her rate did improve down into the 120s on a Cardizem drip. Cardiology saw the patient and an echo was ordered. It showed marked LV dysfunction with an EF of 20 to 25%. Diltiazem is contraindicated in the setting of cardiomyopathy, therefore it was discontinued and she was resumed on metoprolol 25 to 50 mg twice daily. It was felt she may require inotropic therapy if she became hypotensive. Later that evening, a CODE BLUE was called on the patient. Nursing reported she had been taken off of the Cardizem drip at 4:30 PM and started on the metoprolol. Her heart rate was controlled and blood pressure was good, but then she suddenly became bradycardic and pulseless. They started CPR and she was given 2 doses of epinephrine. Inspection of her airway by the ER physician showed an oropharynx full blood. This was suctioned, but the ER physician was unable to use a glide scope because of massive hemoptysis. She was intubated using a straight blade with a 7.5 endotracheal tube. The tube immediately filled with blood once in the trachea and, even after suctioning, she continued to have large amounts of blood filling her endotracheal tube. 250 cc of blood was suctioned out of the ET tube and the oropharynx. The patient briefly regained spontaneous circulation with pulses, but only maintained this for a few minutes and again deteriorated to pulseless electrical activity. After 30 minutes, the ER physician spoke with the patient's sons and they were both in agreement to withdraw care. She was pronounced at 9:30 PM. <Laura Johnson - 04/07/21 17:19> Objective Vital signs: Temp Pulse Resp BP Pulse Ox 98.1 F 80 21 125/56 L 100 04/06/21 12:23 04/06/21 16:00 04/06/21 16:00 04/06/21 16:00 04/06/21 16:00 <Emerson Richards - 05/06/21 15:06> Temp Pulse Resp BP Pulse Ox 98.1 F 80 21 125/56 L 100 04/06/21 12:23 04/06/21 16:00 04/06/21 16:00 04/06/21 16:00 04/06/21 16:00 <Laura Johnson - 04/07/21 17:19> Narrative: - Co
== END 2021-04-07 00:01 | disposition expired | DRG 871 ==
LOC: ER 10:40 → 2ND 11:35
PROVIDERS: Admitting Provider Family Medicine; Emergency Provider Emergency Medicine; PCP Family Medicine; Visit Provider Family Medicine
DX: A41.9 Sepsis, unspecified organism (principal); J18.9 Pneumonia, unspecified organism; N17.9 Acute kidney failure, unspecified; I42.9 Cardiomyopathy, unspecified; I13.0 Hypertensive heart and chronic kidney disease with heart failure and stage 1 through stage 4 chronic kidney disease, or unspecified chronic kidney disease; N18.30 Chronic kidney disease, stage 3 unspecified; R65.20 Severe sepsis without septic shock; Z51.5 Encounter for palliative care; I46.9 Cardiac arrest, cause unspecified; M15.9 Polyosteoarthritis, unspecified; E78.5 Hyperlipidemia, unspecified; R77.8 Other specified abnormalities of plasma proteins; R79.89 Other specified abnormal findings of blood chemistry; Z91.14 Patient's other noncompliance with medication regimen; I11.0 Hypertensive heart disease with heart failure; I48.91 Unspecified atrial fibrillation; I50.9 Heart failure, unspecified; Z20.822 Contact with and (suspected) exposure to COVID-19; I65.29 Occlusion and stenosis of unspecified carotid artery
CPT/HCPCS: 31500; 36415; 71045; 80053; 83605; 83735; 83880; 84436; 84443; 84479; 84484; 85007; 85025; 85610; 85730; 86850; 87040; 93005; 93306; 96365; 96375; 99285; C9803; J0456; J0696; P9016; U0003; U0005